=== PATIENT | male | born 1985 | race Caucasian/White ===

== ENCOUNTER 2023-10-28 18:04 | Emergency (ER) | payer SELFPAY ==
[2023-10-28] MEDS ORDERED: Ibuprofen 200 MG TAB ONE (18:13)
== END 2023-10-28 18:51 | disposition home or self-care (01) ==
LOC: CSHERS 18:04
DX: S83.92XA Sprain of unspecified site of left knee, initial encounter (principal); X50.1XXA Overexertion from prolonged static or awkward postures, initial encounter